=== PATIENT | male | born 1950 | race Caucasian/White ===

== ENCOUNTER → 2018-03-16 | Outpatient (CLI) | payer OTHER ==
[~2018-03-16] MED LIST: ENAL10TA PO; LOVA10TA PO
== END | disposition home or self-care (01) ==
LOC: CVU 10:30
PROVIDERS: ATTEND Internal Medicine Cardiovascular Disease
DX: R07.9 Chest pain, unspecified (principal); R05 Cough; R55 Syncope and collapse; Z87.891 Personal history of nicotine dependence
CPT/HCPCS: 0399T; 93306